=== PATIENT | male | born 1960 | race Caucasian/White ===

== ENCOUNTER 2017-05-23 18:30 | Inpatient (IN) | payer OTHER ==
[~2017-05-23] VITALS: Ht 180.3 cm; Wt 98.3 kg
[2017-05-23 19:13] LABS: MCH 26.1 PG (29.0-34.0); MCHC 32.5 G/DL (30.0-36.0); MCV 80.3 FL (86-99); MEAN PLAT.VOLUME 9.6 uM^3 (9.0-12.4); PLATELET COUNT 221 K/uL (156-360); RBC DIS.WIDTH-CV 13.3 % (11.8-14.6); RBC DIS.WIDTH-SD 38.6 % (39-53); RED BLOOD COUNT 5.48 M/uL (4.00-5.50); WHITE BLOOD COUNT 14.5 K/uL (4.1-10.2)
[2017-05-23 19:21] LABS: INTER. NORMALIZED RATIO 1.1; PROTHROMBIN TIME 11.9 SEC (10.2-12.9)
[2017-05-23 19:23] LABS: CHLORIDE 107 mEq/L (99-109); POTASSIUM 3.8 mEq/L (3.7-5.4); SODIUM 139 mEq/L (136-147)
[2017-05-23 19:24] LABS: PTT 27.4 SEC (25-37)
[2017-05-23 19:25] LABS: GLUCOSE 91 mg/dL (70-99)
[2017-05-23 19:26] LABS: ANION GAP 11 MEQ/L (2-14)
[2017-05-23 19:28] LABS: GFR ESTIMATE (CALCULATED) > 59 mL/min/
[2017-05-23 19:29] LABS: UREA NITROGEN (BUN) 16 mg/dL (9-23)
[2017-05-23 19:37] LABS: TROP-I INTERPRETATION NEGATIVE; TROPONIN-I < 0.01 ng/mL (0.0-0.30)
[2017-05-23] MEDS ORDERED: COZAAR50 MG PO (22:23)
[2017-05-23] MEDS ORDERED: MOTRIN800 MG PO (22:23)
[2017-05-23] MEDS ORDERED: PRILOSEC20 MG PO (22:23)
[2017-05-23] MEDS ORDERED: FIBERCON625 MG PO (22:24)
[2017-05-23] MEDS ORDERED: VIAGRA100 MG PO (22:24)
[2017-05-24] VITALS (9 sets, daily range): BP systolic 138–184; BP diastolic 74–102
[2017-05-24 00:37] LABS: D-DIMER ELISA < 150.00 ng/mLDDU (<230)
[2017-05-24 07:06] LABS: TROP-I INTERPRETATION NEGATIVE; TROPONIN-I < 0.01 ng/mL (0.0-0.30)
[2017-05-24 07:51] LABS: AMPHETAMINES QUANT VALUE 0 NG/ML; BARBITUATES QUANT VALUE 0 NG/ML; BENZODIAZEPINES QUANT VALUE 0 NG/ML; BENZODIAZEPINES, URINE SCREEN Negative (200 ng/mL); MARIJUANA QUANT VALUE 0 NG/ML; OPIATES QUANTITATIVE VALUE 0 NG/ML; PHENCYCLIDINE QUANT VALUE 0 NG/ML
[2017-05-24 12:40] LABS: EOSINOPHIL (%) 4.2 % (0-5); EOSINOPHIL COUNT 0.3 K/uL (0-0.3); HEMATOCRIT 43.6 % (38.0-50.0); IMMATURE GRANULOCYTE (%) 0.2 % (0.0-0.7); INSTRUMENT ABS NEUTROPHIL CT 4.3 K/uL; LYMPHOCYTE COUNT 1.3 K/uL (1.0-2.8); MCH 25.9 PG (29.0-34.0); MCHC 31.7 G/DL (30.0-36.0); MEAN PLAT.VOLUME 9.8 uM^3 (9.0-12.4); MONOCYTE (%) 7.2 % (3-12); MONOCYTE COUNT 0.5 K/uL (0-0.8); NEUTROPHIL (%) 67.9 % (45-76); NEUTROPHIL COUNT 4.3 K/uL (1.8-6.4); PLATELET COUNT 221 K/uL (156-360); RBC DIS.WIDTH-CV 13.4 % (11.8-14.6); RBC DIS.WIDTH-SD 39.9 % (39-53); RED BLOOD COUNT 5.32 M/uL (4.00-5.50); WHITE BLOOD COUNT 6.4 K/uL (4.1-10.2)
[2017-05-24 13:03] LABS: ALKALINE PHOSPHATASE 88 IU/L (3-129); ANION GAP 7 MEQ/L (2-14); CHLORIDE 108 MEQ/L (99-109); GFR ESTIMATE (CALCULATED) > 59 mL/min/; GLUCOSE 91 mg/dL (70-99); POTASSIUM 4.4 MEQ/L (3.7-5.4); SAMPLE HEMOLYSIS CHECK 0; SAMPLE ICTERIC CHECK 0; SAMPLE LIPEMIA CHECK 0; SODIUM 139 MEQ/L (136-147); TOTAL BILIRUBIN 0.6 MG/DL (0.0-1.0); UREA NITROGEN (BUN) 13 mg/dL (9-23)
[2017-05-24 13:08] LABS: TROP-I INTERPRETATION NEGATIVE; TROPONIN-I 0.01 ng/mL (0.0-0.30)
[2017-05-25 07:00] LABS: HEMATOCRIT 43.8 % (38.0-50.0); MCH 25.8 PG (29.0-34.0); MCHC 31.7 G/DL (30.0-36.0); MCV 81.4 FL (86-99); PLATELET COUNT 225 K/uL (156-360); RBC DIS.WIDTH-CV 13.3 % (11.8-14.6); RBC DIS.WIDTH-SD 39.5 % (39-53); RED BLOOD COUNT 5.38 M/uL (4.00-5.50); WHITE BLOOD COUNT 6.2 K/uL (4.1-10.2)
[2017-05-25 07:23] LABS: ANION GAP 6 MEQ/L (2-14); CHLORIDE 106 MEQ/L (99-109); GFR ESTIMATE (CALCULATED) > 59 mL/min/; GLUCOSE 88 mg/dL (70-99); POTASSIUM 4.1 MEQ/L (3.7-5.4); SAMPLE HEMOLYSIS CHECK 0; SAMPLE ICTERIC CHECK 0; SAMPLE LIPEMIA CHECK 0; SODIUM 141 MEQ/L (136-147); UREA NITROGEN (BUN) 18 mg/dL (9-23)
[2017-05-25 07:24] LABS: INTER. NORMALIZED RATIO 1.1; PROTHROMBIN TIME 11.9 SEC (10.2-12.9)
[2017-05-25 07:27] LABS: PTT 28.9 SEC (25-37)
[2017-05-25 07:53] VITALS: BP 168/99
[2017-05-25 11:43] VITALS: BP 140/90
[2017-05-25 15:52] VITALS: BP 138/80
[2017-05-25 20:21] VITALS: BP 180/84
[2017-05-25 23:41] VITALS: BP 124/70
[2017-05-26 03:48] VITALS: BP 141/78
[2017-05-26 06:11] LABS: EOSINOPHIL (%) 6.8 % (0-5); EOSINOPHIL COUNT 0.4 K/uL (0-0.3); HEMATOCRIT 43.7 % (38.0-50.0); IMMATURE GRANULOCYTE (%) 0.3 % (0.0-0.7); INSTRUMENT ABS NEUTROPHIL CT 3.7 K/uL; LYMPHOCYTE COUNT 1.6 K/uL (1.0-2.8); MCH 26.1 PG (29.0-34.0); MCHC 32.3 G/DL (30.0-36.0); MCV 80.9 FL (86-99); MEAN PLAT.VOLUME 10.1 uM^3 (9.0-12.4); MONOCYTE (%) 10.6 % (3-12); MONOCYTE COUNT 0.7 K/uL (0-0.8); NEUTROPHIL (%) 57.4 % (45-76); NEUTROPHIL COUNT 3.7 K/uL (1.8-6.4); PLATELET COUNT 238 K/uL (156-360); RBC DIS.WIDTH-CV 13.2 % (11.8-14.6); RBC DIS.WIDTH-SD 38.6 % (39-53); WHITE BLOOD COUNT 6.5 K/uL (4.1-10.2)
[2017-05-26 06:50] LABS: ANION GAP 8 MEQ/L (2-14); CHLORIDE 106 MEQ/L (99-109); GFR ESTIMATE (CALCULATED) > 59 mL/min/; GLUCOSE 89 mg/dL (70-99); POTASSIUM 4.2 MEQ/L (3.7-5.4); SAMPLE HEMOLYSIS CHECK 0; SAMPLE ICTERIC CHECK 0; SAMPLE LIPEMIA CHECK 0; SODIUM 140 MEQ/L (136-147); UREA NITROGEN (BUN) 18 mg/dL (9-23)
[2017-05-26 08:48] VITALS: BP 171/91
[2017-05-26 11:28] VITALS: BP 169/88
[2017-05-26] MEDS ORDERED: DIAZEPAM2 MG PO (12:42)
[2017-05-26 16:39] VITALS: BP 170/80
[2017-05-26 20:29] VITALS: BP 147/80
[2017-05-26 23:38] VITALS: BP 164/89
[2017-05-27 08:00] VITALS: BP 146/20
== END 2017-05-27 15:59 | disposition home or self-care (01) | DRG 149 ==
LOC: EME 18:30 → EDOF 23:20 → 5SOUTH 23:20 → ENRESERV 23:21 → 5SOUTH 05-24 01:16
PROVIDERS: Emergency Medicine; Hospitalist; Internal Medicine
DX: H81.10 Benign paroxysmal vertigo, unspecified ear (principal); I10 Essential (primary) hypertension; D72.829 Elevated white blood cell count, unspecified; R29.810 Facial weakness; K21.9 Gastro-esophageal reflux disease without esophagitis; Z79.899 Other long term (current) drug therapy; Z79.82 Long term (current) use of aspirin
CPT/HCPCS: 70450; 70496; 70498; 70551; 80048; 80053; 80306 90; 84484; 85025; 85027; 85379; 85610; 85730; 93005; 93880; 99281; 99285; J0360; J0461; J1650; J1885; J7030